=== PATIENT | female | born 1955 | race Caucasian/White ===

== ENCOUNTER 2018-11-25 17:13 | Emergency (ER) | payer SELFPAY ==
[~2018-11-25] VITALS: Ht 165.1 cm; Wt 56.3 kg
[2018-11-25] MEDS ORDERED: ondansetron/PF 4mg/2ml inj IV ONE (19:00)
[2018-11-25] MEDS ORDERED: normal saline 1000ML IV soln IVB ONE (19:00)
[2018-11-25] MEDS ORDERED: GLUC-150 PO (19:27)
[2018-11-25] MEDS ORDERED: IBUP-1985 PO (19:27)
[2018-11-25] MEDS ORDERED: CRAN500T2 PO (19:27)
[2018-11-25] MEDS ORDERED: GABA-532 PO (19:27)
[2018-11-25] MEDS ORDERED: ASPI-1265 PO (19:27)
[2018-11-25 19:36] LABS: BASOPHILS # (AUTO) 0.1 X10'3 (0-0.2); BASOPHILS % (AUTO) 0.4 % (0-1); EOSINOPHILS # (AUTO) 0.1 X10'3 (0-0.9); HEMOGLOBIN 14.4 g/dl (12.0-16.0); LYMPHOCYTES # (AUTO) 0.9 X10'3 (1.1-4.8); LYMPHOCYTES % (AUTO) 6.6 % (21-51); MEAN CORPUSCULAR HEMOGLOBIN 32.7 PG (27.0-31.0); MEAN CORPUSCULAR HGB CONC 33.4 g/dL (33.0-36.5); MEAN CORPUSCULAR VOLUME 97.9 FL (78-98); MONOCYTES # (AUTO) 1.6 X10'3 (0-0.9); MONOCYTES % (AUTO) 12.1 % (2-12); NEUTROPHILS # (AUTO) 10.9 X10'3 (1.8-7.7); NEUTROPHILS % (AUTO) 79.9 % (42-75); PLATELET COUNT 315 X10'3 (140-440); RED BLOOD COUNT 4.39 X10'6 (4.20-5.60); RED CELL DISTRIBUTION WIDTH 15.5 % (11.5-14.5); WHITE BLOOD COUNT 13.6 X10'3 (4.5-11.0)
[2018-11-25 19:40] LABS: ALANINE AMINOTRANSFERASE 48 U/L (12-78); ALBUMIN 2.1 G/DL (3.4-5.0); ALBUMIN/GLOBULIN RATIO 0.5 (1.1-1.5); ALKALINE PHOSPHATASE 280 IU/L (46-116); ANION GAP 10 (8-16); ASPARTATE AMINO TRANSFERASE 56 U/L (10-37); BILIRUBIN,TOTAL 1.8 MG/DL (0.1-1.0); BLOOD UREA NITROGEN 11 MG/DL (7-18); BUN/CREATININE RATIO 14.3 (6.6-38.0); CALCIUM 8.1 MG/DL (8.5-10.1); CHLORIDE 103 MMOL/L (99-107); CREATININE 0.77 MG/DL (0.40-0.90); GLUCOSE 146 MG/DL (70-104); POTASSIUM 3.9 MMOL/L (3.5-5.1); SODIUM 135 MMOL/L (135-145); TOTAL CARBON DIOXIDE 22.5 MMOL/L (24-32); TOTAL PROTEIN 6.1 G/DL (6.4-8.2); eGFR 75 ML/MIN
--- NOTE | 2018-11-25 19:46 | NUR ---
pt given bedside commode and cup for ua with wipe and instructed how to sample and if she has a bm to not have that contaminate the ua sample.
[2018-11-25 19:54] LABS: INR 1.4 INR; PROTHROMBIN TIME 13.7 SECONDS (9.0-12.0)
[2018-11-25 21:42] VITALS: BP 153/69
== END 2018-11-25 22:06 | disposition left against medical advice (07) ==
LOC: ER 17:14
DX: K92.2 Gastrointestinal hemorrhage, unspecified (principal); R19.7 Diarrhea, unspecified; G62.9 Polyneuropathy, unspecified; M19.90 Unspecified osteoarthritis, unspecified site; M06.9 Rheumatoid arthritis, unspecified; Z88.6 Allergy status to analgesic agent; Z88.5 Allergy status to narcotic agent; Z79.82 Long term (current) use of aspirin; Z79.899 Other long term (current) drug therapy
CPT/HCPCS: 36415; 80053; 85025; 85610; 96361; 96374; 99283; J2405; J7030

== ENCOUNTER 2019-04-03 18:00 | Observation (INO) | payer MEDICARE, BC ==
[~2019-04-03] VITALS: Ht 165.1 cm; Wt 59.1 kg
[~2019-04-03 18:00] MED LIST: ASPI-1265 PO; CRAN500T2 PO; GABA-532 PO; GLUC-150 PO; IBUP-1985 PO
--- NOTE | 2019-04-03 18:15 | NUR ---
WHEN ASKED IF SHE LIVES WITH HER SHE BECAME TEARY EYED. IS THE ONE WHOM CALLED EMS. HE HAD CALLED TO CHECK ON HER
[2019-04-03 19:25] LABS: CLARITY,URINE CLEAR (Clear); COLOR,URINE YELLOW (Yellow); GLUCOSE, URINE NEGATIVE (Neg); KETONES,URINE NEGATIVE (Neg); LEUKOCYTE ESTERASE ,URINE NEGATIVE (Neg); NITRITES, URINE NEGATIVE (Neg); OCCULT BLOOD,URINE NEGATIVE (Neg); PROTEIN,URINE NEGATIVE (Neg); UROBILINOGEN,URINE 0.2 E.U/dL (0.2-1.0)
--- NOTE | 2019-04-03 19:30 | NUR ---
PT MADE THE COMMENT "I THINK IT'S TIME TO GO TO [facility]" WHEN ASKED WHAT SHE MEANS BY THAT SHE STATES "I'M NOT SURE I CAN DO THIS ANYMORE" "MY BODY HAS SO MANY PROBLEMS" WHEN ASKED DIRECTLY, "SO ARE YOU SAYING YOU ARE SUICIDAL?" SHE STATES, "NO, YOU MISUNERSTOOD ME. I DON'T WANT TO , I HAVE TO WONDERF[employer] DAUGHTERS." PT ASKED DIRECTLY IF SHE HAD DONE ANYTHING TO HARM HERSELF AND SHE STATES, "NO"
[2019-04-03 19:31] LABS: UA COLLECTION TYPE STRAIGHT CATH
[2019-04-03 19:43] LABS: BASOPHILS % (AUTO) 0.4 % (0-1); EOSINOPHILS # (AUTO) 0.5 X10'3 (0-0.9); EOSINOPHILS % (AUTO) 6.2 % (0-6); HEMATOCRIT 35.6 % (35.0-45.0); LYMPHOCYTES # (AUTO) 1.3 X10'3 (1.1-4.8); LYMPHOCYTES % (AUTO) 16.5 % (21-51); MEAN CORPUSCULAR HEMOGLOBIN 32.9 PG (27.0-31.0); MEAN CORPUSCULAR HGB CONC 33.7 g/dL (33.0-36.5); MEAN CORPUSCULAR VOLUME 97.6 FL (78-98); MEAN PLATELET VOLUME 8.3 FL (7.4-10.4); MONOCYTES # (AUTO) 0.8 X10'3 (0-0.9); MONOCYTES % (AUTO) 9.9 % (2-12); NEUTROPHILS # (AUTO) 5.3 X10'3 (1.8-7.7); PLATELET COUNT 164 X10'3 (140-440); RED BLOOD COUNT 3.65 X10'6 (4.20-5.60); RED CELL DISTRIBUTION WIDTH 15.3 % (11.5-14.5); WHITE BLOOD COUNT 7.9 X10'3 (4.5-11.0)
[2019-04-03 19:54] LABS: PARTIAL THROMBOPLASTIN TIME 28 SECONDS (22-32)
[2019-04-03 20:05] LABS: ALANINE AMINOTRANSFERASE 28 U/L (12-78); ALBUMIN 3.1 G/DL (3.4-5.0); ALKALINE PHOSPHATASE 159 IU/L (46-116); ANION GAP 7 (8-16); ASPARTATE AMINO TRANSFERASE 40 U/L (10-37); BILIRUBIN,TOTAL 0.5 MG/DL (0.1-1.0); BLOOD UREA NITROGEN 15 MG/DL (7-18); BUN/CREATININE RATIO 19.5 (6.6-38.0); CALCIUM 7.8 MG/DL (8.5-10.1); CHLORIDE 112 MMOL/L (99-107); CREATININE 0.77 MG/DL (0.40-0.90); ETHANOL < 0.010 GM/DL (0.0-0.010); GLUCOSE 97 MG/DL (70-104); POTASSIUM 4.2 MMOL/L (3.5-5.1); SODIUM 143 MMOL/L (135-145); TOTAL CARBON DIOXIDE 24.5 MMOL/L (24-32); TOTAL PROTEIN 6.1 G/DL (6.4-8.2); eGFR 75 ML/MIN
[2019-04-03 20:06] LABS: URINE AMPHETAMINE SCREEN NEGATIVE (Neg); URINE BARBITUATE SCREEN NEGATIVE (Neg); URINE BENZODIAZEPINES SCREEN NEGATIVE (Neg); URINE CANNABINOID SCREEN NEGATIVE (Neg); URINE COCAINE SCREEN NEGATIVE (Neg); URINE METHADONE SCREEN NEGATIVE (Neg); URINE OPIATE SCREEN POSITIVE (Neg); URINE PHENCYCLIDINE SCREEN NEGATIVE (Neg)
--- NOTE | 2019-04-03 22:12 | NUR ---
CALLED TO INITIATE TELENEURO CONSULT
[2019-04-03 22:14] LABS: C-REACTIVE PROTEIN 0.12 MG/DL (0.0-0.5)
--- NOTE | 2019-04-03 22:15 | NUR ---
SPOKE WITH RAAD TO INITIATE TELLA NEUROLOGICAL CONSULT AT [phone]
--- NOTE | 2019-04-03 22:33 | NUR ---
REPOSTIONED PT CHANGED LINEN AND CHANGED INTO A GOWN
--- NOTE | 2019-04-03 22:44 | NUR ---
AWAITNG TELLANEUROLOGIVAL CONSULT PATIENTS SPEECH SOUNDS TO BE CLEARER AND LESS SLURRED PT VERBALIZE " IM SPEECH IS IMPROVING SINCE WHEN I FIST GOT HERE. PURE WICK IN PLACE TO HELP WITH PATIENT INCONTIENT BLADDER.
--- NOTE | 2019-04-03 23:45 | NUR ---
REPOSTIONED PATIENT CHANGED PADDING . PT REPORTING PAIN 01/21 NOTIFIED JASMINA PLUMMER ABOUT PT UNCOMFORTABLE TO THE RIGHT KNEE
[2019-04-04] MEDS ORDERED: mag hydrox/Alum hydrox/simeth 30ml oral suspension PO PRN (01:35)
[2019-04-04] MEDS ORDERED: ondansetron/PF 4mg/2ml inj IV PRN (01:35)
[2019-04-04] MEDS ORDERED: magnesium hydroxide 30ml (MOM) UD suspension PO PRN (01:35)
[2019-04-04] MEDS ORDERED: acetaminophen 325mg tablet PO PRN (01:35)
[2019-04-04] MEDS ORDERED: LORazepam 2 mg/ml vial IV ONE (01:55)
--- NOTE | 2019-04-04 02:36 | NUR ---
Patient in room . I have received report from SHARON Brito and had the opportunity to ask questions and assume patient care.
[2019-04-04 03:00] VITALS: BP 98/54
--- NOTE | 2019-04-04 06:43 | NUR ---
Problems reprioritized. Patient report given, questions answered & plan of care reviewed with SHARON Godinez and SHARON Almanza.
[2019-04-04 06:53] VITALS: BP 114/63
--- NOTE | 2019-04-04 06:55 | NUR ---
Patient in room [facility]THO 4010. I have received report from Keerthi HERRERA and had the opportunity to ask questions and assume patient care.
[2019-04-04] MEDS ORDERED: aspirin 81mg tab.chew PO SCH (08:00)
[2019-04-04] MEDS: heparin, porcine 5000 units/ml vial SQ SCH ×2 (08:00→08:08)
[2019-04-04 10:00] VITALS: BP 153/55
--- NOTE | 2019-04-04 15:09 | NUR ---
Pt left in WC to lobby where she was waiting on the [employer] cab to pick her up to head home in [place].
== END 2019-04-04 14:05 | disposition home or self-care (01) ==
LOC: ER 18:00 → ORTHO 4S 04-04 02:47
PROVIDERS: ADMIT Internal Medicine; ATTEND Family Medicine
DX: R53.1 Weakness (principal); R47.81 Slurred speech; M06.9 Rheumatoid arthritis, unspecified; M19.90 Unspecified osteoarthritis, unspecified site; F41.9 Anxiety disorder, unspecified; F32.9 Major depressive disorder, single episode, unspecified; K74.60 Unspecified cirrhosis of liver; F17.200 Nicotine dependence, unspecified, uncomplicated; Z79.82 Long term (current) use of aspirin; Z79.899 Other long term (current) drug therapy; Z86.73 Personal history of transient ischemic attack (TIA), and cerebral infarction without residual deficits; R60.9 Edema, unspecified
CPT/HCPCS: 36415; 70450; 80053; 80305; 80320; 81003; 82140; 85025; 85610; 85651; 85730; 86140; 87081; 96374; 99284; G0378; J1644; J2060

== ENCOUNTER 2019-04-26 02:27 | Emergency (ER) | payer MEDICARE, BC ==
[~2019-04-26] VITALS: Ht 165.1 cm; Wt 61.4 kg
[~2019-04-26 02:27] MED LIST changes: -CRAN500T2 PO; -GABA-532 PO; -GLUC-150 PO
--- NOTE | 2019-04-26 03:05 | NUR ---
PT STATED THAT SHE HAS DRANK "ABOUT 4 GLASSES OF WINE. OH YEAH AND A COUPLE SHOTS OF NADER-DAVONTE ZHANG." PT ALSO CONFIDED THAT SHE "IS DONE. I WONT WANT TO LIVE MY LIFE IN PAIN ANYMORE. I'M JUST DONE." SHE DENIES CURRENT SI AND STATES THAT SHE WOULD "IF I COULD FROM INFECTION."
[2019-04-26] MEDS ORDERED: diphenhydrAMINE 25mg capsule PO ONE (03:25)
[2019-04-26 03:30] VITALS: BP 159/79
--- NOTE | 2019-04-26 03:30 | NUR ---
TREVOR INCREASED TO LEVEL 2 RELEATED TO SI.
[2019-04-26 03:46] LABS: URINE AMPHETAMINE SCREEN NEGATIVE (Neg); URINE BARBITUATE SCREEN NEGATIVE (Neg); URINE BENZODIAZEPINES SCREEN POSITIVE (Neg); URINE CANNABINOID SCREEN NEGATIVE (Neg); URINE COCAINE SCREEN NEGATIVE (Neg); URINE METHADONE SCREEN NEGATIVE (Neg); URINE OPIATE SCREEN NEGATIVE (Neg); URINE PHENCYCLIDINE SCREEN NEGATIVE (Neg)
[2019-04-26 04:04] LABS: COLOR,URINE YELLOW (Yellow); GLUCOSE, URINE NEGATIVE (Neg); KETONES,URINE NEGATIVE (Neg); LEUKOCYTE ESTERASE ,URINE MODERATE (Neg); NITRITES, URINE NEGATIVE (Neg); OCCULT BLOOD,URINE TRACE-INTACT (Neg); PROTEIN,URINE TRACE mg/dl (Neg); UROBILINOGEN,URINE 0.2 E.U/dL (0.2-1.0)
[2019-04-26 04:07] LABS: CLARITY,URINE CLOUDY (Clear); UA COLLECTION TYPE CLN CATCH MIDSTREAM
[2019-04-26 04:07] LABS: BASOPHILS # (AUTO) 0.1 X10'3 (0-0.2); BASOPHILS % (AUTO) 0.9 % (0-1); EOSINOPHILS # (AUTO) 0.8 X10'3 (0-0.9); EOSINOPHILS % (AUTO) 10.2 % (0-6); HEMATOCRIT 43.4 % (35.0-45.0); HEMOGLOBIN 14.6 g/dl (12.0-16.0); LYMPHOCYTES # (AUTO) 2.2 X10'3 (1.1-4.8); LYMPHOCYTES % (AUTO) 29.2 % (21-51); MEAN CORPUSCULAR HEMOGLOBIN 32.8 PG (27.0-31.0); MEAN CORPUSCULAR HGB CONC 33.6 g/dL (33.0-36.5); MEAN CORPUSCULAR VOLUME 97.8 FL (78-98); MONOCYTES # (AUTO) 0.7 X10'3 (0-0.9); MONOCYTES % (AUTO) 9.1 % (2-12); NEUTROPHILS # (AUTO) 3.9 X10'3 (1.8-7.7); NEUTROPHILS % (AUTO) 50.6 % (42-75); PLATELET COUNT 231 X10'3 (140-440); RED BLOOD COUNT 4.43 X10'6 (4.20-5.60); WHITE BLOOD COUNT 7.7 X10'3 (4.5-11.0)
[2019-04-26 04:10] LABS: BACTERIA,URINE 4+ /HPF (Neg)
[2019-04-26 04:11] LABS: SQUAMOUS EPITHELIAL CELL,UR MODERATE /LPF (FEW)
[2019-04-26 04:13] LABS: ALBUMIN 3.9 G/DL (3.4-5.0); ANION GAP 15 (8-16); BILIRUBIN,TOTAL 0.7 MG/DL (0.1-1.0); BLOOD UREA NITROGEN 9 MG/DL (7-18); BUN/CREATININE RATIO 12.9 (6.6-38.0); CALCIUM 9.8 MG/DL (8.5-10.1); CHLORIDE 110 MMOL/L (99-107); GLUCOSE 98 MG/DL (70-104); POTASSIUM 3.4 MMOL/L (3.5-5.1); SODIUM 146 MMOL/L (135-145); TOTAL CARBON DIOXIDE 20.7 MMOL/L (24-32); TOTAL PROTEIN 8.2 G/DL (6.4-8.2); eGFR 84 ML/MIN
[2019-04-26 04:14] LABS: ALANINE AMINOTRANSFERASE 31 U/L (12-78); ALBUMIN/GLOBULIN RATIO 0.9 (1.1-1.5); ALKALINE PHOSPHATASE 178 IU/L (46-116); ASPARTATE AMINO TRANSFERASE 44 U/L (10-37); PARTIAL THROMBOPLASTIN TIME 25 SECONDS (22-32)
[2019-04-26 04:23] LABS: ETHANOL 0.213 GM/DL (0.0-0.010)
--- NOTE | 2019-04-26 06:35 | NUR ---
While RN was in different pt room, the pt began kicking and pounding on kwok. When RN got to her room, the pt had thrown brief at the glass doors, and urinated on the floor of the room. Pt then proceeded to yell that she was "pissing on herself", and called RN "bitch". PCT assisted in linen change and placing pt in clean brief.
--- NOTE | 2019-04-26 06:42 | NUR ---
Pt resting comfortably, eyes closed. Respirations equal and nonlabored.
--- NOTE | 2019-04-26 07:17 | NUR ---
PACKET FAXED TO [facility]
[2019-04-26] MEDS ORDERED: nitrofuran/nitrofuran macrocrysal 100 MG capsule PO ONE (07:20)
[2019-04-26] MEDS ORDERED: phenazopyridine 100mg tablet PO ONE (07:20)
--- NOTE | 2019-04-26 08:00 | NUR ---
Pt found attempting to unscrew facet on sink. Assisted back to bed. Pt also removed her pants, stating that she had urinated in them. Given another brief and additional pants.
[2019-04-26] MEDS ORDERED: ibuprofen tablet 400 MG TABLET PO ONE (08:05)
--- NOTE | 2019-04-26 09:30 | NUR ---
Pt lying in bed with eyes closed. Attempted to turn down lights, which pt requested not occur. Will continue to monitor.
--- NOTE | 2019-04-26 11:17 | NUR ---
Pt resting comfortably. Respirations equal and nonlabored.
--- NOTE | 2019-04-26 12:15 | NUR ---
Pt is asleep, in view of nursing station. Resting comfortably, in no apparent distress at this time.
--- NOTE | 2019-04-26 13:15 | NUR ---
pT SITTING UP ON SIDE OF BED, APPEARS TO BE IN BETTER SPIRITS. STATES SHE IS GOING TO BE RELEASED AND GET THERAPY. PT IS CALM AND COOPERATIVE AT THIS TIME. AOX4.
[2019-04-26] MEDS ORDERED: phenazopyridine 100mg tablet PO SCH (16:00)
[2019-04-26] MEDS ORDERED: nitrofuran/nitrofuran macrocrysal 100 MG capsule PO SCH (20:00)
== END 2019-04-26 14:21 | disposition home or self-care (01) ==
LOC: ER 02:28
DX: F32.9 Major depressive disorder, single episode, unspecified (principal); M06.9 Rheumatoid arthritis, unspecified; F41.9 Anxiety disorder, unspecified; G62.9 Polyneuropathy, unspecified; Z88.5 Allergy status to narcotic agent; Z79.82 Long term (current) use of aspirin
CPT/HCPCS: 36415; 80053; 80305; 80320; 81001; 84443; 85025; 85610; 85730; 99285; Q0163

== ENCOUNTER 2020-03-23 15:00 | Outpatient (CLI) | payer MEDICARE, BC | END 2020-03-23 23:59 | disposition home or self-care (01) | LOC: VAS 15:00 | PROVIDERS: ATTEND Family Medicine | DX: I82.441 Acute embolism and thrombosis of right tibial vein (principal); R59.0 Localized enlarged lymph nodes | CPT/HCPCS: 93970 ==

== ENCOUNTER 2024-06-06 15:49 | Outpatient (CLI) | payer MEDICARE, BC, OTHER ==
[2024-06-06 16:38] VITALS: PULSE 98; RESP 16; O2SAT 95
== END 2024-06-06 23:59 | disposition home or self-care (01) ==
LOC: RT 15:49
PROVIDERS: ATTEND Family Medicine
DX: I27.20 Pulmonary hypertension, unspecified (principal)
CPT/HCPCS: 94010; 94760